=== PATIENT | female | born 1955 | race Caucasian/White ===

== ENCOUNTER 2017-04-03 11:10 | Emergency (ER) | payer BC, OTHER ==
[2017-04-03] MEDS ORDERED: ACETAMINOPHEN 500 MG TABLET PO ONE (11:34)
--- OUTSIDE RECORDS SUMMARY | 2017-04-03 11:35 | XMS REPORT | Continuity of Care Document ---
:1955 Author Organization [facility] ([facility]) Address [place] [address] Phone [phone] Care Team Providers Name Role Phone Provider, No-Primary Care Primary Care Provider Unavailable Source Comments This disclosure is being made pursuant to the Care Everywhere program, applicable federal and state laws, and may not contain all informaitonavailable regarding this patient.[facility] ([facility]) Active Allergies and Adverse Reactions No Known Allergies Current Medications Prescription Sig. Disp. Refills Start Date End Date Status aspirin 325 mg tablet Take 325 mg by Active mouth daily. PYRIDOXINE HCL (VITAMIN Take by mouth. Active B-6 PO) MULTIVITAMINS WITH Take by mouth. 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
--- NOTE | 2017-04-03 11:45 | ERNOTE ---
Medical Problem HPI - Narrative Date of Service: 04/03/17 - General Chief Complaint: General Assessment Time Seen by Provider: 04/03/17 11:26 Source: patient Exam Limitations: no limitations - Immun/Allergies/Home Medications Immunizations: IMMUNIZATION HX History of Influenza Vaccine Yes Hx Pneumococcal Vaccination Yes Allergies/Adverse Reactions: Allergies No Known Allergies Allergy (Verified 04/03/17 11:22) Home Medications: HOME MEDICATIONS Aspirin/Calcium Carbonate/Mag [Aspirin Buffered 325 mg Tab] 325 mg PO DAILY [Last Taken Unknown] Glimepiride [Amaryl] 2 mg PO DAILY #30 tab 04/03/17 [Last Taken Unknown] Sulfamethoxazole/Trimethoprim [Bactrim Ds] 1 tab PO BID #28 tab 04/03/17 [Last Taken Unknown] metFORMIN HCL [Metformin HCl ER] 500 mg PO DAILY #30 [id number] 04/03/17 [Last Taken Unknown] - History of Present History Narrative: Pt/ comes in with c/o headache, elevated blood glucose and water retention for two weeks. Pt. states that for the past two years her diabetes has been diet controlled and her blood sugars have been running 80-150 but the past two weeks her blood glucose has been 250-500. Pt. denies any increased thirst, nausea, vomiting, or recent illness. Pt. denies any SOB, CP, or dizziness, but does state that her BLE and BUE are more swollen recently as well. Review of Systems - Review of Systems Constitutional: Present: fatigue. Absent: fever, chills, weakness, malaise, weight loss EYE: Present: no symptoms reported. Absent: eye pain, double vision ENT: Present: no symptoms reported. Absent: nose pain, nose congestion, sore throat Respiratory: Present: no symptoms reported. Absent: shortness of breath, cough , wheezing Cardiology: Present: edema. Absent: chest pain, palpitations Gastrointestinal/Abdominal: Present: no symptoms reported. Absent: nausea, vomiting, diarrhea Genitourinary: Present: no symptoms reported. Absent: frequency, decreased urinary output Musculoskeletal: Present: no symptoms reported. Absent: back pain, joint pain Skin: Present: no symptoms reported. Absent: change in color Neurological: Present: headache, tingling - B hands occasionally after having to be out in the cold last winter, denies vences bite. Absent: dizziness/light- headedness All Other Systems: All systems neg except as marked - Patient's Past Medical History Patient History - Medical: Diabetes Type 2 Patient History - Cardiac/Respiratory: No pertinent hx Patient History - Cancer: No Hx of Cancer Patient History - Surgical Procedures: Appendectomy, Tubal Ligation Patient History - Other: None - Social History Living Situations: home Psych History: No pertinent hx Alcohol Use: none Drug Use: none - Immunizations Hx Pneumococcal Vaccination: Yes History of Influenza Vaccine: Yes Physical Exam - Physical Exam General Appearance: Present: wd/wn, alert, no apparent distress Eye Exam: Normal inspection: bilateral, PERRL: bilateral, EOMI: bilateral Ears, Nose, Throat: Present: normal ENT inspection, normal pharynx Neck: Present: normal inspection, nontender. Absent: lymphadenopathy (R), lymphadenopathy (L) Respiratory: Present: no respiratory distress, normal breath sounds, no accessory muscle use, chest nontender, lungs clear. 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 Absent: motor weakness Skin Exam: Present: normal color, warm/dry. Absent: pallor, skin rash Lymphatic Exam: Present: no adenopathy ED Progress - Date and Time Seen: Date and Time: 04/03/17 13:39 As pt. has nitrates it is recommended to treat UTI although pt. also has epithelial cells. So will start pt. back on her medications for her diabetes and have her follow up with her PCP in 1-2 days. - Vital Signs Patient's Vital Signs:: I have reviewed the patient's vital signs. Vital Signs: Vital Signs 04/03/17 11:15 Temperature 36.6 C Pulse Rate 77 Respiratory 12 Rate Blood Pressure 186/90 O2 Sat by Pulse 99 Oximetry - EKG EKG: NSR, nonspecific ST T wave changes EKG read: Reviewed by me EKG Comments: Interpreted by Dr Zendejas no acute - X-Ray X-Ray #1 X-Ray: chest Interpretation: Interp. by me X-ray Comments: IMPRESSION: 1. No focal acute cardiopulmonary finding. 2. Multiple pulmonary calcified granulomas. 3. No definite signs of pulmonary venous congestion/edema. - Progress/Reassessment Chief Complaint: General Assessment Departure - Departure Clinical Impression: UTI (urinary tract infection) Qualifiers: Urinary tract infection type: acute cystitis Hematuria presence: with hematuria Qualified Code(s): N30.01 - Acute cystitis with hematuria Diabetes Qualifiers: Diabetes mellitus type: type 2 Diabetes mellitus complication status: with neurologic complications Diabetes mellitus complication detail: with unspecified neuropathy Diabetes mellitus termite control service representative insulin use: without termite control service representative use Qualified Code(s): E11.40 - Type 2 diabetes mellitus with diabetic neuropathy, unspecified Disposition: Home self-care Condition: Good Instructions: Diabetic Nephropathy, Diabetes and Standards of Medical Care, Urinary Tract Infection, Adult, [id number] Additional Instructions: Please start diabetic medications and monitor blood sugars in the morning and afternoon daily and follow up wiht primary provider in 1-2 days. Referrals: NONE,NONE [Primary Care Provider] - Prescriptions: Glimepiride [Amaryl] 2 mg PO DAILY #30 tab Sulfamethoxazole/Trimethoprim [Bactrim Ds] 1 tab PO BID #28 tab metFORMIN HCL [Metformin HCl ER] 500 mg PO DAILY #30 [id number]
[2017-04-03 11:50] LABS: Hematocrit 37.5 % (37.0-47.0); Mean Cell Volume 83.5 fl (78-100); Mean Corpuscular Hgb Conc 34.7 g/dl (32-36); Neutrophil # 3.4 K/mm3 (1.3-6.0); Neutrophil % 61.8 % (42-75.0); Platelet Count 235 K/mm3 (150-450); Red Blood Count 4.49 M/mm3 (4.2-5.4); White Blood Count 5.5 K/mm3 (4.0-10.5)
[2017-04-03 12:08] LABS: Hemoglobin A1C 12.9 % (4.00-6.0)
[2017-04-03 12:13] LABS: Troponin I Less than 0.017 ng/ml (0.00-0.10)
[2017-04-03 12:19] LABS: ALT 35 U/L (19-67); AST 18 U/L (0-48); Albumin * 3.2 gm/dl (3.4-5.0); Alkaline Phosphatase * 93 U/L (50-170); Anion Gap 12.2 mmol/L (6.8-13.8); BNP * 100 pg/mL (5-205); BUN/Creatinine Ratio 25.9 (9.0-21.6); Bilirubin, Total 0.5 mg/dL (0.0-1.1); Blood Urea Nitrogen 22 mg/dL (3-23); Ca. Corrected For Albumin 9.1 mg/dL (8.4-10.2); Calcium * 8.8 mg/dL (7.9-10.9); Chloride 102 mmol/L (97-106); Glucose * 418 mg/dL (70-110); Potassium 4.2 mmol/L (3.4-4.6); Sodium 137 mmol/L (132-142); Total Protein 6.7 gm/dL (6.2-8.2)
[2017-04-03 13:15] LABS: Urine Bilirubin Negative (NEGATIVE); Urine Blood 25 /ul (NEGATIVE); Urine Ketone Negative (NEGATIVE); Urine Protein 15 mg/dL (NEGATIVE); Urine Specific Gravity 1.015 SP.GR. (1.005-1.010); Urine Urobilinogen Normal (NORMAL); Urine pH 5.5 pH (5.0-7.0)
[2017-04-03 13:32] LABS: Urine Appearance Slightly Cloudy; Urine Bacteria 3+; Urine Color Yellow; Urine Nitrite Positive (NEGATIVE); Urine RBC TRACE /hpf (0-5); Urine Renal Epithelial Cell Few - 1+ /hpf; Urine Transitional Epi Cells Few - 1+ /hpf
[2017-04-03 14:09] VITALS: BP 166/86
== END 2017-04-03 14:04 | disposition home or self-care (01) ==
LOC: ER 11:10
DX: N30.01 Acute cystitis with hematuria (principal); E11.40 Type 2 diabetes mellitus with diabetic neuropathy, unspecified